=== PATIENT | female | born 1945 ===

== ENCOUNTER 2016-08-13 10:05 | Outpatient (RCR) | payer OTHER | END 2016-09-07 | disposition home or self-care (01) | LOC: PTY 10:05 | PROVIDERS: ATTEND Internal Medicine | DX: M54.5 Low back pain (principal); Z90.5 Acquired absence of kidney | CPT/HCPCS: 97110; 97140; 97162; G0283 ==

== ENCOUNTER 2016-09-10 10:00 | Outpatient (RCR) | payer OTHER | END 2016-10-08 | disposition home or self-care (01) | LOC: PTY 10:00 | PROVIDERS: ATTEND Internal Medicine | DX: M54.5 Low back pain (principal); Z90.5 Acquired absence of kidney | CPT/HCPCS: 97110; 97140; G0283 ==